=== PATIENT | male | born 1935 | race Native Hawaiian/Other Pacific Islander ===

== ENCOUNTER 2017-09-09 13:20 | Outpatient (CLI) | payer OTHER | END 2017-09-09 18:58 | disposition home or self-care (01) | LOC: RAD 13:20 | DX: R06.09 Other forms of dyspnea (principal) ==

== ENCOUNTER 2017-11-08 11:10 | Inpatient (IN) | payer OTHER ==
[2017-11-08] VITALS (12 sets, daily range): BP systolic 91–175; BP diastolic 57–90; TEMP 97.4–98.5; Ht 177.8 cm; Wt 122.5 kg
[~2017-11-08] VITALS: Ht 177.8 cm; Wt 122.5 kg
[2017-11-08 13:30] LABS: PLATELET COUNT 105 K/uL (142-355)
[2017-11-08 13:49] LABS: POTASSIUM 3.8 mmol/L (3.6-5.2)
[2017-11-09] VITALS (23 sets, daily range): BP systolic 119–170; BP diastolic 57–90; TEMP 97.4–98.8
[2017-11-09 08:41] LABS: PLATELET COUNT 110 K/uL (142-355)
[2017-11-09 09:18] LABS: POTASSIUM 4.4 mmol/L (3.6-5.2)
[2017-11-10] VITALS (10 sets, daily range): BP systolic 132–177; BP diastolic 76–97; TEMP 98–98.7
[2017-11-10 08:09] LABS: PLATELET COUNT 121 K/uL (142-355)
[2017-11-10 08:52] LABS: POTASSIUM 4.2 mmol/L (3.6-5.2)
[2017-11-11] VITALS (21 sets, daily range): BP systolic 146–179; BP diastolic 63–102; TEMP 97.7–98.7
[2017-11-11 06:21] LABS: PLATELET COUNT 92 K/uL (142-355)
[2017-11-11 06:26] LABS: POTASSIUM 4.7 mmol/L (3.6-5.2)
[2017-11-12] VITALS (24 sets, daily range): BP systolic 156–189; BP diastolic 75–100; TEMP 97.8–98.8
[2017-11-12 06:26] LABS: POTASSIUM 4.8 mmol/L (3.6-5.2)
[2017-11-12 06:36] LABS: PLATELET COUNT 101 K/uL (142-355)
[2017-11-13] VITALS (20 sets, daily range): BP systolic 150–189; BP diastolic 70–101; TEMP 98–99
[2017-11-13 06:37] LABS: PLATELET COUNT 91 K/uL (142-355)
[2017-11-13 06:51] LABS: POTASSIUM 4.7 mmol/L (3.6-5.2)
[2017-11-14] VITALS (14 sets, daily range): BP systolic 144–185; BP diastolic 68–95; TEMP 98–99.4
[2017-11-14 06:30] LABS: PLATELET COUNT 79 K/uL (142-355)
[2017-11-14 07:47] LABS: POTASSIUM 4.2 mmol/L (3.6-5.2)
[2017-11-15] VITALS (16 sets, daily range): BP systolic 142–194; BP diastolic 56–95; TEMP 97.8–98.6
[2017-11-15 06:53] LABS: POTASSIUM 4.5 mmol/L (3.6-5.2)
[2017-11-15 07:37] LABS: PLATELET COUNT 88 K/uL (142-355)
[2017-11-16] VITALS (13 sets, daily range): BP systolic 148–186; BP diastolic 70–95; TEMP 97–98
[2017-11-16 07:48] LABS: PLATELET COUNT 99 K/uL (142-355)
[2017-11-16 08:00] LABS: POTASSIUM 4.4 mmol/L (3.6-5.2)
[2017-11-17] VITALS (9 sets, daily range): BP systolic 153–181; BP diastolic 66–85; TEMP 97.7–98.7
[2017-11-17 06:39] LABS: PLATELET COUNT 75 K/uL (142-355)
[2017-11-17 06:44] LABS: POTASSIUM 3.8 mmol/L (3.6-5.2)
[2017-11-18] VITALS: BP 136/61; TEMP 97.8
[2017-11-18 04:00] VITALS: BP 169/69; TEMP 97.7
[2017-11-18 09:32] VITALS: BP 165/42; TEMP 98.6
[2017-11-18 13:43] VITALS: BP 178/95; TEMP 98.6
[2017-11-18 17:59] VITALS: BP 135/90; TEMP 98.6
[2017-11-18 19:45] LABS: PLATELET COUNT 109 K/uL (142-355)
[2017-11-18 20:00] VITALS: BP 164/78; TEMP 98.1
[2017-11-18 20:19] LABS: POTASSIUM 3.5 mmol/L (3.6-5.2)
[2017-11-19] VITALS: BP 137/69; TEMP 97.7
[2017-11-19 04:00] VITALS: BP 105/73; TEMP 97.8
[2017-11-19 05:54] LABS: POTASSIUM 3.5 mmol/L (3.6-5.2)
[2017-11-19 06:06] LABS: PLATELET COUNT 112 K/uL (142-355)
[2017-11-19 08:49] VITALS: BP 165/93; TEMP 97.8
[2017-11-19 20:00] VITALS: BP 113/91; TEMP 97.9
[2017-11-20] VITALS: BP 154/72; TEMP 97.4
[2017-11-20 04:00] VITALS: BP 157/70; TEMP 98.2
[2017-11-20 07:51] LABS: POTASSIUM 3.6 mmol/L (3.6-5.2)
[2017-11-20 08:00] VITALS: BP 163/102; TEMP 97.1
[2017-11-20 08:01] LABS: PLATELET COUNT 121 K/uL (142-355)
[2017-11-20 12:00] VITALS: BP 147/64; TEMP 97.1
[2017-11-20 16:00] VITALS: BP 154/84; TEMP 98
[2017-11-20 20:00] VITALS: BP 145/68; TEMP 98.7
[2017-11-21] VITALS: BP 147/770; TEMP 99
[2017-11-21 01:00] VITALS: BP 134/61
[2017-11-21 04:00] VITALS: BP 154/89; TEMP 97.9
[2017-11-21 08:00] VITALS: BP 159/88; TEMP 98
== END 2017-11-21 08:22 | DRG 189 ==
LOC: ICU 11:10 → MED/SURG 11-18 09:21 → ICU 11-19 23:30
PROVIDERS: ADMIT Family Medicine
PROC: 5A09557 Assistance with Respiratory Ventilation, Greater than 96 Consecutive Hours, Continuous Positive Airway Pressure (ICD-10-PCS; principal; 2017-11-08)
DX: J96.01 Acute respiratory failure with hypoxia (principal); J18.8 Other pneumonia, unspecified organism; N17.8 Other acute kidney failure; J44.0 Chronic obstructive pulmonary disease with (acute) lower respiratory infection; I25.10 Atherosclerotic heart disease of native coronary artery without angina pectoris; I48.91 Unspecified atrial fibrillation; E11.9 Type 2 diabetes mellitus without complications; Z91.14 Patient's other noncompliance with medication regimen; B35.4 Tinea corporis; F03.90 Unspecified dementia, unspecified severity, without behavioral disturbance, psychotic disturbance, mood disturbance, and anxiety; B37.9 Candidiasis, unspecified; D69.6 Thrombocytopenia, unspecified; I50.9 Heart failure, unspecified
CPT/HCPCS: 36415; 36600; 80048; 80053; 80202; 81000; 82805; 82948; 82962; 83036; 83605; 83735; 83880; 84100; 85027; 85610; 87804; 93005; 94640; 94664; 94668; 94760; 96372; J0696; J1450; J1650; J1815; J1940; J2060; J2930; J3370

== ENCOUNTER 2017-11-21 08:29 | Outpatient (CLI) | payer OTHER | END 2017-11-21 10:35 | disposition short-term general hospital (02) | LOC: AMB 08:29 | DX: J96.01 Acute respiratory failure with hypoxia (principal); J18.8 Other pneumonia, unspecified organism; N17.8 Other acute kidney failure; J44.0 Chronic obstructive pulmonary disease with (acute) lower respiratory infection; I25.10 Atherosclerotic heart disease of native coronary artery without angina pectoris; I48.91 Unspecified atrial fibrillation; E11.9 Type 2 diabetes mellitus without complications; Z91.14 Patient's other noncompliance with medication regimen; B35.4 Tinea corporis; F03.90 Unspecified dementia, unspecified severity, without behavioral disturbance, psychotic disturbance, mood disturbance, and anxiety; B37.9 Candidiasis, unspecified; D69.6 Thrombocytopenia, unspecified; I50.9 Heart failure, unspecified | CPT/HCPCS: A0425; A0427 ==